=== PATIENT | male | born 1980 | race Caucasian/White ===

== ENCOUNTER 2019-10-26 07:08 | Observation (INO) | payer SELFPAY ==
--- NOTE | 2019-10-10 13:12 | PCM.HP.BLA ---
History and Physical History and Physical [facility] Patient Name: Rio Solares : 1980 From: RK CALDERA PA-C DATE OF SURGERY: 10/26/2019 SCHEDULED PROCEDURE: right total hip arthroplasty HISTORY OF PRESENT ILLNESS: Preoperative history and physical exam was performed on October 10, 2019. This is a 39-year-old male who presents today for continued pain in the right hip. He has had pain for over 10 years. Patient states he has had progression of pain over the past several months. Pain with activity can reach his eyes a 4/10. Patient's pain is intermittent, dull, aching, sharp, stabbing. He has increased with pain with going up and down stairs, sitting, walking, and biking. Patient has a difficult time with leisure activities such as biking. He has tripped/stump due to the pain. Patient has tried healthcare management consultant with no relief in symptoms. Patient states activities of daily living have been more difficult and does have increased groin pain with those activities. He has difficult time putting on shoes and socks. Patient does have start up pain. He denies previous surgery on the right hip. Patient denies any recent fevers, chills, recent infections or any chest pain/shortness of breath. We have obtain surgical clearance from the primary care physician Dr. Grimaldo. He has already had lab work and EKG. After failing conservative measures and discussing treatment options with Dr. Nikolai Gong, the patient would like to proceed with a right total hip arthroplasty. He has also attempted lbru-pdi-phddjay medications including glucosamine and ibuprofen with no relief. REVIEW OF SYSTEMS: ROS: Const: Denies change in appetite, fever and weight change. CV: Denies chest pain, heart murmur and irregular heartbeat. Resp: Denies cough, pneumonia, shortness of breath, tuberculosis and wheezing. GI: Denies constipation, diarrhea, heartburn, nausea, rectal itching, bloody stools and vomiting. : Denies incontinence. Musculo: Reports pain and trouble walking, but denies leg swelling and weakness. Skin: Denies Raynaud's, history of shingles and tattoo. Neuro: Denies ambulatory dysfunction, dizziness, numbness/tingling and tremor. Psych: Denies anxiety, insomnia and stress. Jesus/Lymph: Denies anemia, bleeding/bruising tendency and past transfusion. Reviewed, no changes. PAST MEDICAL HISTORY: Advance Care Plan: No Advance Directives Effective Date: 07/04/2019 PMH: Medical Problems: No Current Problems Accidents: None Surgical Hx: None Anesthesia Complications: None Assistive Devices: None Reviewed, no changes. SOCIAL HISTORY: SH: Marital: .Occupation: [employer].Work Status: Currently Working.Hand Dominance: Right-handed. Personal Habits: Cigarette Use: Former.Smokeless Tobacco: Current Smokeless Tobacco User.E-Cigarette Use: Never used.Alcohol: Denies use.Drug Use: Denies Use.Enjoy Exercising: Daily. Reviewed, no changes. VITALS: Ht: 70 Wt: 202lb Wt k.627 BMI: 29.0 BP: 98/70 Pulse: 66 Resp: 16 T: 97.4 T: 36.3C ALLERGIES: No Known Drug Allergy MEDICATIONS: Ibuprofen 200 200 mg 3 by mouth as needed PRE-OP EXAM: General appearance:NORMAL Other: Eyes: Conjunctivae and lids: NORMAL Pupils: ERR Ears, Nose, Mouth, and Throat: NORMAL Other: Inspection of lips, teeth and gums: NORMAL Other: Neck: Examination of neck: no masses noted. Respiratory: Assessment of respiratory effort: NORMAL Other: Auscultation of lungs: clear to auscultation no wheezes, rhonchi or rales. Cardiovascular: Auscultation of heart: regular rate and rhythm, no murmurs, gallops or rubs. Exam of carotid arteries: NORMAL Other: Gastrointestinal: Exam of abdomen: soft, nontender, nondistended bowel sounds present. PHYSICAL EXAMINATION: Patient does walk with an antalgic gait. He has external rotation of bilateral feet with the right greater than the left. Patient has obligatory external rotation with flexion. Flexion 65, internal rotation neutral, external rotation 30. Patient does have tenderness to palpation laterally over the greater trochanteric region. The right leg is 5 mm shoulder when compared to the left. He does have increased pain with range of motion. IMAGING STUDIES: Previous x-rays of bilateral hips reveal varus deformity with deformity of the femoral head consistent with previous slipped capital femoral epiphysis. Both hips have complete loss of joint space and evidence of subchondral sclerosis, osteophyte formation, and subchondral cyst formation. The right hip has further collapse of the femoral head with shortening of the extremity compared to the left. They are consistent with severe stage IV secondary osteoarthritis. IMPRESSION: 1. Secondary right hip osteoarthritis 2. 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 Nikolai Gong did discuss and review with the patient all treatment options including surgical versus nonsurgical options. Patient does wish to proceed with the above-stated procedure. Potential risks, benefits, and complications of the procedure were discussed in detail including but not limited to , infection, nerve and blood vessel damage, persistent pain, numbness, tingling, paresthesias, blood clot, pulmonary embolism, and requirement for possible further surgery. The patient expressed full understanding and has no further questions for the doctor. Patient does agree to proceed with the above-stated procedure and has signed the surgery consent form. We discussed the current risks associated with COVID 19. This does include the risk of exposure while in the hospital. Patient was reassured local hospitals have low infection rates and are taking all necessary precautions to avoid exposure to patients. In addition, we discussed strategies that can be used to help limit exposure including those that limit the patient's time in the hospital. Also using strategies to limit the patient's need for continued inpatient services after being discharged from the hospital. Patient was notified that we will need to comply with any screening or testing the hospital wishes to perform or that surgery may be delayed for any positive results. This dictation was created using voice recognition software. Phonetic and/or grammatical errors may exist. ___ I have re-examined the patient. There are no clinical changes since date of exam. ___ See progress notes for changes. ___ Dictated on admission Date: Time: Signature:
[2019-10-25 11:23] LABS: Probe Check PASS; Specimen Processing Control PASS
[2019-10-26] VITALS (11 sets, daily range): BP systolic 114–136; BP diastolic 61–84; PULSE 64–87; RESP 14–18; TEMP 36.3–36.8; O2SAT 95–100; BMI 33.0; BMI 31.4
[2019-10-26] MEDS: Scopolamine 1mg/72hr Patch 1 PATCH TD (07:15)
[2019-10-26] MEDS: Gabapentin 600 MG Tablet PO (07:52)
[2019-10-26] MEDS: Acetaminophen 500 MG Tablet 1000 MG PO ×3 (07:52→21:32)
[2019-10-26] MEDS: Scopolamine 1mg/72hr Patch 1 PATCH TRANSDERM. (07:53)
[2019-10-26] MEDS: Lactated Ringers 1,000 ML 999 ML IV ×2 (07:54→11:00)
[2019-10-26] MEDS: Lactated Ringers 1,000 ML 75 ML IV (07:54)
[2019-10-26] MEDS: Cefazolin 2 GM in 0.9% Normal Saline 100 ML IV (08:57)
--- NOTE | 2019-10-26 09:00 | RAD_ITS ---
STUDY: X-RAY - PELVIS AND RIGHT HIP REASON FOR EXAM: Male, 39 years old. ANTERIOR HIP REPAIR TECHNIQUE: 1 views of the pelvis and hip. COMPARISON: None. FINDINGS: Intraoperative imaging provided for right total hip replacement. RAD/Hip 1 view with Pelvis IMPRESSION: Intraoperative imaging provided for right total hip replacement. Electronically Signed: Danny Andrews, at 15:31 EDT , Service support ,
[2019-10-26 09:21] LABS: Bedside Glucose 87 mg/dL (70-110)
--- NOTE | 2019-10-26 10:36 | OP.PCM_ITS ---
Report of Operation Date of Procedure: 10/26/19 Pre-Operative Diagnosis: Right hip posttraumatic osteoarthritis, status post SCFE Post-Operative Diagnosis: Right hip posttraumatic osteoarthritis, status post SCFE Surgery/Procedure Performed:: Minimally invasive direct anterior right total replacement Description of Surgical Findings:: Stable hip. Due to shortened left hip from left hip SCFE deformity we did make the right extremity comparably long. Plan is we will even the leg lengths and restore the left hip mechanics when appropriate for hip replacement. clerk of court: Amilcar Ochoa Type of Anesthesia:: Spinal Anesthesiologist: Selwyn Sullivan Special Medications: 2 g Ancef, 1 g TXA at incision, 1 g TXA closure, 10 mg Decadron, joint cocktail (5 mg Duramorph, 30 mL of 0.5% Ropivicaine, 1000 units of epinephrine, 30 mg of Toradol) Specimen's removed: Bony cuts Estimated Blood Loss (mL): 300 mL Fluids Replaced: 1000 mL crystalloid Description of Procedure: Components used: 1. Accolade 2 Navdeep femoral stem size 6 127? 2. Girdler trident 2 acetabular shell size 54 mm 3. Girdler X3 polyethylene e 4. Navdeep Biolox delta 36mm, -5mm femoral head Brief history operative indications: 39 yo M who failed conservative measures for their hip osteoarthritis secondary to previous SCFE at the age of 16 with no previous surgical intervention. X- rays were consistent with osteoarthritis including joint space narrowing, osteophyte formation and subchondral cysts. Total hip replacement was discussed with the patient with risks and benefits including but not limited to blood loss, DVTs, PEs, neurovascular damage, dislocation, general risks of anesthesia including loss of life. Patient demonstrated an understanding medical clearance is obtained the patient was consented for surgery. Procedure: On the date of procedure the patient's R hip was marked in the preoperative area. Patient was then taken back to the operating room where anesthesia assumed control of the C-spine and airway and administered anesthetic. Patient was transferred to the operating table and placed in the supine position. The hips were placed at the break of the bed and a sacral bump was placed. The R lower extremity was then prepped out in a sterile fashion using chlorhexidine while the surgeon scrubbed. The PA was vital in the positioning of the patient. Upon reentering the room the R lower extremity was draped in the standard orthopedic fashion and the incision was marked. A timeout was called and everyone agreed upon the side, the site, the procedure be performed, antibody given, and patient's identity. At this time incision was made through skin, subcutaneous tissue, and fat down to fascia. The fascia was then incised and the TFL was retracted laterally. A retractor was placed on the lateral border of the femoral neck. Attention was directed to the inferior portion of the approach and all crossing vessels were identified and appropriately coagulated. A retractor was then placed on the medial portion of the femoral neck. The anterior capsule was then cleared of all soft tissue and then H shaped capsulotomy was made. The retractors were then placed inside the capsule. The femoral neck was identified and a cleanup cut was made. At this time a power corkscrew was used to remove the femoral head. Attention was then turned toward the acetabulum where the soft tissues were appropriately retracted and the acetabulum was sequentially reamed to 54 mm. A 54 mm cup was then selected and impacted into place. Acetabular liner was impacted into place and locking mechanism was verified. The position of the karen tabular cup was then verified under live fluoroscopy. Attention was then turned to the femur. Soft tissue releases on the medial and lateral femoral neck were appropriately done, the leg was externally rotated and lateralized. A Leahy retractor was placed medially and proximally to the greater trochanter this allowed appropriate visualization and exposure of the femoral canal. Rongeour was then used to remove excess lateral bone. A canal finder and entry broach were used to open the proximal canal. Once we verified we were down the femoral canal we subsequently broached up to a size 6 femur. The appropriate neck was placed in the previously selected head was trialed with a -5 mm neck. Traction was pulled and the hip was reduced with internal rotation. Once it was appropriately reduced and stability was checked. There was minimal shuck, equal leg lengths and appropriate stability with hyperextension and external rotation as well as with 90? flexion and internal rotation. Fluoroscopy was then also used to verify the position of the components and leg lengths using the contralateral side for comparison. The trial components were then dislocated the proximal femur was again exposed and the components were removed from the wound. The final components were verified and opened. The wound was copiously irrigated out with normal saline. The acetabulum was checked for any residual debris. The final components were placed and impacted. Traction and internal rotation were again used to reduce the hip. After adequate reduction the hip remained stable with appropriate leg lengths. The final components were once again checked with live fluoroscopy and were found to be satisfactory. The wound was then copiously irrigated with normal saline once more, and hemostasis was obtained. Closure was then done using #1 Vicryl runner to close the fascia. A 2-0 vicryl interuppted sutures were used to close the subcutaneous skin. A 3-0 Monocryl and Steri-Strips were used for final skin closure. A Silverlon dressing was placed. Patient was awakened by anesthesia and transferred to the [facility]. Patient was then transferred to the PACU for recovery. Postoperative plan: Patient will get 24 hours postop antibiotics. Patient will get in-house physical therapy and will be weight-bear as tolerated. Patient will follow up in office in 2 weeks for a wound check and x-rays. - Complications No intraoperative complications - Admit VTE Documentation VTE Present on Admission: No VTE Mechan Device Prophylaxis: SCD's, Thigh High IVET Hose VTE Pharm Prophylaxis ordered?: Yes
--- NOTE | 2019-10-26 11:15 | RAD_ITS ---
STUDY: X-RAY - PELVIS AND RIGHT HIP REASON FOR EXAM: Male, 39 years old. Post op right side hip replacement TECHNIQUE: 2 views of the pelvis and hip. COMPARISON: None. FINDINGS: The patient is status post right hip replacement. There is good alignment. Postoperative soft tissue changes. Marked degree of osteoarthritis with deformity of the left femoral neck. RAD/Hip Min 2 Views (Portable) IMPRESSION: Status post right total hip replacement. There is good alignment. Marked degree of osteoarthritis of the left hip joint with deformity of the left femoral neck. Electronically Signed: Danny Andrews, at 12:17 EDT , Service support ,
[2019-10-26] MEDS: Lactated Ringers 1,000 ML 125 ML IV (11:53)
[2019-10-26] MEDS: Aspirin 81 MG TAB.CHEW PO ×2 (13:52→17:23)
[2019-10-26] MEDS: Cefazolin 1 GM/50 ML BAG IV ×2 (17:23→23:50)
[2019-10-26] MEDS: traMADol 50 MG Tablet PO (21:31)
[2019-10-27 00:20] VITALS: BP 116/58; PULSE 69; RESP 16; TEMP 36.6; O2SAT 100
[2019-10-27 04:32] VITALS: BP 125/69; PULSE 86; RESP 16; TEMP 36.9; O2SAT 99
[2019-10-27] MEDS: Acetaminophen 500 MG Tablet 1000 MG PO (05:56)
[2019-10-27 06:27] LABS: Hematocrit 38.9 % (40-54); Hemoglobin 12.8 g/dL (13.0-16.5); Mean Corp Hgb Conc 32.9 g/dL (32-36); Mean Corpuscular Hgb 31.1 pg (27.0-32.0); Mean Corpuscular Volume 94.4 fL (80-94); Mean Platelet Vol. 9.6 fl (6.2-12.0); Platelet Count 222 K/mm3 (150-450); RBC Distribution Width CV 12.7 % (11.6-14.6); RBC Distribution Width SD 43.6 fl (35.1-43.9); Red Blood Count 4.12 M/mm3 (4.6-6.2); White Blood Count 16.3 K/mm3 (4.4-11.0)
[2019-10-27 07:30] LABS: Anion Gap 6 (5-15); BUN 14 mg/dL (7-18); BUN/Creat Ratio 17.5 RATIO (10-20); Calcium,Total 8.5 mg/dL (8.5-10.1); Chloride 103 mmol/L (98-107); EST Glomerular Filtration Rate 115 mL/min (>60); Est Glom Filt Rate - Afr Amer 139 mL/min (>60); Estimated Creatinine Clearance 117.05 ml/min; Glucose 94 mg/dL (74-106); Potassium 3.7 mmol/L (3.5-5.1); Sodium Level 139 mmol/L (136-145)
--- NOTE | 2019-10-27 07:51 | PN.ORTHO_ITS ---
Subjective: The patient was sitting in bed upon examination. Patient denies any chest pain, shortness of breath, dizziness, lightheadedness, nausea or vomiting, or calf pain. Pain is controlled on medications. No adverse overnight events. Patient is doing very well. Patient is ready for discharge home. Objective: Vital signs stable and afebrile. Patient is able to plantarflex and dorsiflex actively. Sensation is intact to light touch to saphenous, sural, superficial and deep peroneal, and tibial distribution. Dressing is clean dry and intact. Negative Homans bilaterally, negative signs and symptoms of DVT. - Physical Exam Vitals/I&O's: Vital Signs Temp Pulse Resp BP Pulse Ox 98.4 F 86 16 125/69 H 99 10/27/19 04:32 10/27/19 04:32 10/27/19 04:32 10/27/19 04:32 10/27/19 04:32 Oxygen Flow Rate (L/min) 6 Oxygen Delivery Method Room Air Weight: 92.533 kg Body Mass Index (BMI) 31.4 Intake and Output for Last 24 Hours 10/25/19 10/26/19 10/27/19 23:59 23:59 23:59 Intake Total 5380 / 5380 630 / 630 Balance 5380 / 5380 630 / 630 General: Alert, Oriented x3, Cooperative, No apparent distress Laboratory Results 10/26/19 07:44: POC Glucose 87 10/27/19 05:58: WBC 16.3 H, RBC 4.12 L, Hgb 12.8 L, Hct 38.9 L, MCV 94.4 H, MCH 31.1, MCHC 32.9, RDW Std Deviation 43.6, RDW Coeff of Jeanette 12.7, Plt Count 222, MPV 9.6 10/27/19 05:58: Sodium 139, Potassium 3.7, Chloride 103, Carbon Dioxide 30.0, Anion Gap 6, BUN 14, Creatinine 0.80, Estim Creat Clear Calc 117.05, Est GFR (MDRD) Af Amer 139, Est GFR (MDRD) Non-Af 115, BUN/Creatinine Ratio 17.5, Glucose 94, Calcium 8.5 Current Medications Acetaminophen (Tylenol) 1,000 mg PO Q8 RONALDO Last Admin: 10/27/19 05:56 Dose: 1,000 mg Documented by: Aspirin (Aspirin, Baby) 81 mg PO BIDCM [facility] Last Admin: 10/26/19 17:23 Dose: 81 mg Documented by: Enteral Nutritional Formula (Ensure Surgery) 237 ml PO TIDCM [facility] Last Admin: 10/26/19 15:22 Dose: Not Given Documented by: Famotidine (Pepcid) 20 mg PO DAILY [facility] Last Admin: 10/26/19 12:47 Dose: Not Given Documented by: Sodium Chloride () 250 mls @ 15 mls/hr IV .[id number] PRN PRN Reason: Saline Flush Sodium Chloride () 250 mls @ 15 mls/hr IV .[id number] PRN PRN Reason: Additional IVPB Infusion Insulin Human Lispro (Humalog Kwikpen (Bkc)) 1 - 6 unit SC Q4H PRN PRN; Protocol PRN Reason: BG>/= 180, SEE PROTOCOL Ketorolac Tromethamine (Toradol (Bkc)) 15 mg IV Q6H PRN PRN PRN Reason: Pain Score 1-5/10 Meloxicam (Mobic) 7.5 mg PO BID [facility] Morphine Sulfate () 2 - 4 mg IV Q2H PRN PRN PRN Reason: Pain Score 4-10/10 Ondansetron HCl (Zofran) 4 mg IV Q8H PRN PRN PRN Reason: NAUSEA Promethazine HCl (Phenergan) 12.5 mg IM Q6H PRN PRN; Protocol PRN Reason: NAUSEA/VOMITING Senna/Docusate Sodium (Senokot-S, Katerine-Colace) 2 tablet PO BID [facility] Last Admin: 10/26/19 21:30 Dose: Not Given Documented by: Sodium Chloride () 10 - 40 ml IV UD PRN PRN Reason: SALINE FLUSH Tramadol HCl (Ultram) 50 - 100 mg PO Q6H PRN PRN PRN Reason: Pain Score 4-10/10 Last Admin: 10/26/19 21:31 Dose: 50 mg Documented by: Medical Necessity - Tobacco Use Smoking Status: Former smoker Tobacco Use: Chew Assessment/Plan 1. S/P right direct anterior total hip arthroplasty POD #1 2. Continue Pain Medications: Tylenol, meloxicam, tramadol 3. DVT Prophylaxis: Aspirin 81 mg twice daily for DVT prophylaxis 4. PT/OT: Weightbearing as tolerated 5. H & H: 12.8/38.9, asymptomatic. Secondary from acute blood loss from surgery 6. Reactive leukocytosis: Currently 16.3, afebrile. Patient did receive Decadron intraoperatively 7. Encouraged Incentive Spirometry 8. Disposition: Orthopedically stable, plan will be for discharge home after physical therapy. Prescriptions will be E scribed to [facility]. Patient will need outpatient physical therapy established. Case management will assist in setting this up. Patient has postoperative 2-week follow-up scheduled. He will follow orthopedic postop instructions. I have reviewed the [place] Automated Rx Reporting System (OARRS) report for this patient for refill pattern and other prescriber involvement as part of the appropriate surveillance for the provision of acute and chronic controlled medications. The report was requested and reviewed on the date of this entry and was considered in the prescribing process.
[2019-10-27 07:55] VITALS: BP 122/66; PULSE 79; RESP 18; TEMP 36.7; O2SAT 100
[2019-10-27] MEDS: traMADol 50 MG Tablet PO (08:05)
[2019-10-27] MEDS: Famotidine 20 MG Tablet PO (08:05)
[2019-10-27] MEDS: Senna/Docusate Sodium 1 Tablet 2 TABLET PO (08:05)
[2019-10-27] MEDS: Aspirin 81 MG TAB.CHEW PO (08:05)
[2019-10-27] MEDS: Ensure Surgery 237 ML LIQUID PO (08:05)
--- NOTE | 2019-10-27 09:00 | PCM.DC.THR ---
Discharge Diet: No Restrictions Discharge Activity: May Not Drive - while taking narcotic pain medications. May shower in (days): 1 - Dressing must be intact to skin. Turn dressing away from water Ice area for (Minutes): 20 - Every 1-2 hours while awake Weight Bearing Status: Weight bearing as tolerated Elevate: Operative Extremity Additional Activity Instructions:: Wear elastic stockings for 2 weeks. DO NOT use alcohol with narcotic pain medication. DO NOT make important decisions while taking narcotic medication. If you have problems with taking your medication (rash, itching, nausea, etc.) call the office at once. Call your doctor if your incision/area has: Increased Pain/ Swelling, Increased Redness, Foul Smelling Discharge Call your doctor if you observe: Fever of 101 or Higher Remove Dressing in (days):: 3 Allergies/Adverse Reactions: Allergies No Known Allergies Allergy (Verified 10/26/19 07:21) Medications to take at Discharge Acetaminophen [Tylenol] 1,000 mg PO Q8 tablet 10/27/19 Aspirin [Aspirin, Baby] 81 mg PO BIDCM #60 tab 10/27/19 Famotidine [Pepcid] 20 mg PO DAILY #30 tab 10/27/19 Meloxicam [Mobic] 7.5 mg PO BID #60 tab 10/27/19 Senna/Docusate Sodium [Senokot-S] 2 tab PO BID #10 tab 10/27/19 traMADol [Ultram] 50 - 100 mg PO Q6H PRN PRN 4 Days #32 tablet 10/27/19 The following prescriptions were given: Aspirin [Aspirin, Baby] 81 mg PO BIDCM #60 tab Transmission Status: Pending to [facility] Meloxicam [Mobic] 7.5 mg PO BID #60 tab Transmission Status: Pending to [facility] Famotidine [Pepcid] 20 mg PO DAILY #30 tab Transmission Status: Pending to [facility] Senna/Docusate Sodium [Senokot-S] 2 tab PO BID #10 tab Transmission Status: Pending to [facility] traMADol [Ultram] 50 - 100 mg PO Q6H PRN PRN 4 Days #32 tablet PRN Reason: Pain Score 4-10/10 Transmission Status: Sent to [facility] Primary Care Physician: Luke Grimaldo DO [Primary Care Provider] - Test Results: Test results from this visit will be discussed in further detail at your follow-up appointment, if applicable. Please Follow Up With: physical therapy When: to be set up Please Follow Up With: Demetris Martínez PA-C When: @ 9:15 am
--- NOTE | 2019-10-27 09:45 | CASEMGMT ---
VIRA WEINSTEIN Face to Face with patient for initial transition planning/care coordination assessment. RN JS introduced self and role at [facility]. Patient lying in bed, alert and oriented. Patient willing to participate in assessment and is able to answer all questions appropriately. Care providers, pharmacy, and demographics verified. Patient wishes to discharge home, and is setup with [facility] for outpatient therapy. Patient states he has no further needs or concerns at this time. CM to follow for discharge planning needs that may arise. PCP: Re Specialists: Farideh Bhatti Pharmacy: [facility] Insurance: None Prescription Benefit: none Living Will/HPOA: none LNOK: Living Arrangements: Patient lives with in 2 story home with bed and bath on first floor. Patient has 4-5 steps and railing to enter the home. Patient was independent at home prior to surgery. Transportation: neighbor DME/C: Patient has walker and raised toilet seat. Patient is scheduled for outpatient therapy with [facility] on Thursday. Disposition Plan: Patient to discharge home with outpatient therapy, family support, and follow-up plans in place. Sahara REYES, RN, CM
--- NOTE | 2019-10-27 11:48 | PHA.DC.MR ---
Pharmacy Service has performed discharge medication reconciliation for this patient. The patient's discharge medication list was reviewed for discrepancies and discrepancies were resolved. Home Medications Acetaminophen [Tylenol] 1,000 mg PO Q8 tab 10/27/19 Aspirin [Aspirin, Baby] 81 mg PO BIDCM #60 tab 10/27/19 Famotidine [Pepcid] 20 mg PO DAILY #30 tab 10/27/19 Meloxicam [Mobic] 7.5 mg PO BID #60 tab 10/27/19 Senna/Docusate Sodium [Senokot-S] 2 tab PO BID #10 tab 10/27/19 traMADol [Ultram] 50 - 100 mg PO Q6H PRN PRN 4 Days #32 tab 10/27/19
== END 2019-10-27 11:35 | disposition home or self-care (01) ==
LOC: SDC 08:58 → MS3 08:58
PROVIDERS: Anesthesiology; Admitting Provider Specialist; PCP Physician Assistant; Referring Provider Specialist; Visit Provider Specialist
PROC: (CPT 27284; principal; 2019-10-26 08:35)
DX: M16.51 Unilateral post-traumatic osteoarthritis, right hip (principal); Z11.59 Encounter for screening for other viral diseases; M17.11 Unilateral primary osteoarthritis, right knee; F17.220 Nicotine dependence, chewing tobacco, uncomplicated
CPT/HCPCS: 01214; 27130; 36415; 73501; 73502; 76000; 80048; 82962; 85027; 87635; 96361; 96365; 96366; 97110; 97161; 97166; 97530; 97535; 99218; 99251; 99406; C1776; G2023; J7120; G0378; G0379; G0463; U0003